=== PATIENT | female | born 1975 | race Caucasian/White ===

== ENCOUNTER 2017-01-24 17:27 | Emergency (ER) | payer SELFPAY ==
[~2017-01-24] VITALS: Ht 157.5 cm; Wt 78.0 kg
[~2017-01-24 17:27] MED LIST: CLIN1CAP6 PO; OXYC1SOL5 PO
[2017-01-24 17:28] VITALS: BP 125/78; PULSE 110; RESP 16; TEMP 99.7; O2SAT 97
[2017-01-24] MEDS ORDERED: CLINDAMYCIN 600 MG/NS PREMIX 50 ML IV ONE (19:30)
[2017-01-24] MEDS ORDERED: IBUPROFEN 800 MG TAB PO ONE (19:30)
[2017-01-24] MEDS ORDERED: LIDOCAINE 1%/EPINEPHrine 1:100,000 SOLN 20 ML VIAL INFIL ONE (19:30)
[2017-01-24] MEDS ORDERED: TETANUS/DIPHTHERIA TOXOID ADULT 0.5 ML VIAL IM ONE (19:30)
[2017-01-24] MEDS ORDERED: SODIUM CHLOR 0.9% 1000 ML INJ 1,000 ML IV ONE (19:30)
[2017-01-24 19:34] VITALS: BP 122/70; PULSE 98; RESP 18; O2SAT 98
--- NOTE | 2017-01-24 19:35 | PD ---
HPI Chief Complaint: Bite or Sting Time Seen by Provider: 19:22 Travel History International Travel<30 days: No Contact w/Intl Traveler<30days: No Traveled to known affect area: No History of Present Illness HPI 41-year-old white female presents to emergency Department with complaints of a painful rash on her right anterior abdomen which she has had now for the past 3 days. It started off as a small which she states as a "bite". She states that she had squeezed it yesterday and got a large amount of pus out. The area has become increasingly painful, red and swollen. She denies any fever or chills. No nausea vomiting. History of MRSA. Symptoms are moderate to severe. No alleviating factors. No exacerbating factors. PFSH Past Medical History Narrative Medical Hepatitis C, MRSA Asthma: No Blood Disorders: No Anxiety: No Depression: No Heart Rhythm Problems: No Cancer: No Cardiovascular Problems: No High Cholesterol: No Chemotherapy: No Chest Pain: No Congestive Heart Failure: No COPD: No Diabetes: No Diminished Hearing: No Endocrine: No Genitourinary: No Hepatitis: Yes (C) Immune Disorder: No Musculoskeletal: Yes Neurologic: No Psychiatric: No Reproductive: No Respiratory: No Radiation Therapy: No Sleep Apnea: No Thyroid Disease: No Tetanus Vaccination: > 5 Years Past Surgical History Narrative Surgical Hysterectomy Gynecologic Surgery: Yes (HYSTERECTOMY) Hysterectomy: Yes Other Surgery: Yes (HYSTERECTOMY) Social History Alcohol Use: No Tobacco Use: Yes (1 PPD) Substance Use: Yes (METH) Allergies-Medications (Allergen,Severity, Reaction): Coded Allergies: No Known Allergies (Verified , 04/08/14) Reported Meds & Prescriptions Reported Meds & Active Scripts Active Diclofenac Sodium DR (Diclofenac Sodium) 75 Mg Tabdr 75 Mg PO BID Cleocin (Clindamycin HCl) 150 Mg Cap 300 Mg PO Q6H Oxycodone/Acetaminophen 5-325 mg/5Ml (Oxycodone W/ Acetaminophen) 1 Tab Tab 1 Tab PO Q6H PRN Clindamycin Hcl (Clindamycin HCl) 300 Mg Cap 300 Mg PO QID 10 Days Review of Systems General / Constitutional: No: Fever Eyes: No: Visual changes HENT: No: Headaches Cardiovascular: No: Chest Pain or Discomfort Respiratory: No: Shortness of Breath Gastrointestinal: No: Abdominal Pain Genitourinary: No: Dysuria Musculoskeletal: Positive: Pain Skin: Positive Rash Neurologic: No: Weakness Psychiatric: No: Depression Endocrine: No: Polydipsia Hematologic/Lymphatic: No: Easy Bruising Physical Exam Narrative GENERAL: This is a well-nourished, well-developed patient, in no apparent distress. SKIN: Patient has a area of erythema to the right upper abdomen measuring approximately 6 x 12 cm. There is a 3 x 6 cm area of central induration with a central pustule. There is no fluctuance or pointing. Warm to touch. Tender. HEAD: Atraumatic. Normocephalic. EYES: PERRL, EOMI, no discharge or injection. No scleral icterus. EARS: Clear NOSE: Nasal turbinates appear normal. THROAT: Mucosa pink and moist. Airway patent. NECK: Trachea midline. supple, moves head freely. LUNGS: Clear to auscultation. CV: Regular in rhythm. ABDOMEN: Soft nontender. EXT: No clubbing cyanosis or edema. Data Data Last Documented VS Vital Signs Date Time Temp Pulse Resp B/P (MAP) Pulse Ox O2 Delivery O2 Flow Rate FiO2 01/24/17 19:34 98 18 122/70 (87) 98 Room Air 01/24/17 17:28 99.7 Orders Orders Complete Blood Count With Diff (01/24/17 19:25) Basic Metabolic Panel (Bmp) (01/24/17 19:25) Iv Access Insert/Monitor (01/24/17 19:25) Lactic Acid (01/24/17 19:25) Sodium Chlor 0.9% 1000 Ml Inj (Ns 1000 M (01/24/17 19:30) Ibuprofen (Motrin) (01/24/17 19:30) Clindamycin 600 Mg Premix (Cleocin 600mg (01/24/17 19:30) Tetanus/Diphtheria Tox Adult (Tetanus/Di (01/24/17 19:30) Lidocai-Epi 1%-1:100,000 Inj (Xylocaine- (01/24/17 19:30) Ed Discharge Order (01/24/17 21:03) Labs Laboratory Tests Test 01/24/17 19:45 White Blood Count 13.0 TH/MM3 Red Blood Count 4.80 MIL/MM3 Hemoglobin 14.2 GM/DL Hematocrit 41.7 % Mean Corpuscular Volume 86.9 FL Mean Corpuscular Hemoglobin 29.6 PG Mean Corpuscular Hemoglobin Concent 34.1 % Red Cell Distribution Width 12.6 % Platelet Count 291 TH/MM3 Mean Platelet Volume 8.0 FL Neutrophils (%) (Auto) 67.4 % Lymphocytes (%) (Auto) 24.2 % Monocytes (%) (Auto) 6.6 % Eosinophils (%) (Auto) 1.3 % Basophils (%) (Auto) 0.5 % Neutrophils # (Auto) 8.7 TH/MM3 Lymphocytes # (Auto) 3.1 TH/MM3 Monocytes # (Auto) 0.9 TH/MM3 Eosinophils # (Auto) 0.2 TH/MM3 Basophils # (Auto) 0.1 TH/MM3 CBC Comment DIFF FINAL Differential Comment Blood Urea Nitrogen 6 MG/DL Creatinine 0.83 MG/DL Random Glucose 111 MG/DL Calcium Level 9.0 MG/DL Sodium Level 135 MEQ/L Potassium Level 4.8 MEQ/L Chloride Level 101 MEQ/L Carbon Dioxide Level 28.4 MEQ/L Anion Gap 6 MEQ/L Estimat Glomerular Filtration Rate 75 ML/MIN Lactic Acid Level 1.8 mmol/L MDM Medical Decision Making Medical Screen Exam Complete: Yes Emergency Medical Condition: Yes Medical Record Reviewed: Yes Interpretation(s) CBC & BMP Diagram 01/24/17 19:45 Calcium Level 9.0 Lactic negative Differential Diagnosis MDM: High Differential diagnoses: Abscess, folliculitis, cellulitis, lymphangitis, abrasion, contact dermatitis Narrative Course IV access is obtained. Patient given clindamycin 600 mg IV, tetanus immunization, CBC, chemistry, lactic acid, normal saline 1 L bolus. Motrin 800 mg by mouth. An incision and drainage will be performed. Procedures Procedure Narrative I&D abscess: After the risks and benefits were discussed the following procedure was performed. The skin is prepped and draped in the usual sterile fashion using Betadine. The abscess is anesthetized with 1% lidocaine with epinephrine. After adequate anesthesia, an 11 blade scalpel is used to make a 3 centimeter central incision. Perulant material is expressed. Loculations are broken up using curved Nataliia forceps. The wound is cleansed deeply using dilute Betadine and peroxide on Q-tips. The wound is packed open using iodoform gauze. A clean dressing is applied. The patient tolerated the procedure well. There was no complications. Follow-up instructions were given to the patient. Diagnosis Primary Impression: right upper abdomen abscess with cellulitis Patient Instructions: General Instructions Additional Instructions: Rest. Elevation. keep clean and dry. remove the packing in two days. Daily wound care with soap, water and Neosporin. Clindamycin and diclofenac. Follow-up with a primary care doctor in 3-5 days. Return to the ER for any problems. Med/Other Pt SpecificInfo: Prescription(s) given, Wound Care Scripts Diclofenac Sodium DR (Diclofenac Sodium DR) 75 Mg Tabdr 75 MG PO BID, #20 TAB 0 Refills Prov: Grecia Castellon DO 01/24/17 Clindamycin (Cleocin) 150 Mg Cap 300 MG PO Q6H for Infection, #80 CAP 0 Refills Prov: Grecia Castellon DO 01/24/17 Disposition: 01 DISCHARGE HOME Condition: Stable Fam Gregorio Jan 24, 2017 19:35
[2017-01-24 20:22] LABS: AUTOMATED NEUTROPHIL # 8.7 TH/MM3 (1.8-7.7); BASOPHIL # 0.1 TH/MM3 (0-0.2); BASOPHIL % 0.5 % (0.0-2.0); EOSINOPHIL # 0.2 TH/MM3 (0-0.4); EOSINOPHIL % 1.3 % (0.0-4.0); HEMATOCRIT 41.7 % (35.0-46.0); HEMO FLAGS DIFF FINAL; LYMPH % 24.2 % (9.0-44.0); LYMPHOCYTE # 3.1 TH/MM3 (1.0-4.8); MEAN CELL VOLUME 86.9 FL (80.0-100.0); MEAN CORPUSCULAR HEMOGLOBIN 29.6 PG (27.0-34.0); MEAN CORPUSCULAR HGB CONC 34.1 % (32.0-36.0); MONO % 6.6 % (0.0-8.0); NEUT % 67.4 % (16.0-70.0); PLATELET COUNT 291 TH/MM3 (150-450); RED CELL DISTRIBUTION WIDTH 12.6 % (11.6-17.2)
[2017-01-24 20:46] LABS: BICARBONATE 28.4 MEQ/L (21.0-32.0)
[2017-01-24 20:48] LABS: POTASSIUM 4.8 MEQ/L (3.5-5.1)
[2017-01-24] MEDS ORDERED: DICL75TA PO (21:06)
[2017-01-24] MEDS ORDERED: CLIN150 PO (21:06)
[2017-01-24 21:12] VITALS: BP 121/73
== END 2017-01-24 21:22 | disposition home or self-care (01) ==
LOC: NEPD 17:27
DX: L02.211 Cutaneous abscess of abdominal wall (principal); L03.311 Cellulitis of abdominal wall
CPT/HCPCS: 10061; 80048; 83605; 85025; 96374; 99284; J7030

== ENCOUNTER 2017-01-29 09:59 | Emergency (ER) | payer SELFPAY ==
[~2017-01-29 09:59] MED LIST changes: +CLIN150 PO; +DICL75TA PO
[2017-01-29 10:03] VITALS: BP 132/69; PULSE 120; RESP 15; TEMP 99.7; O2SAT 97
[2017-01-29] MEDS ORDERED: KETOROLAC TROMETHAMINE 30 MG/ML (IVP) VIAL IV PUSH ONE (10:45)
[2017-01-29] MEDS ORDERED: ONDANSETRON HCL 4 MG/2 ML VIAL IV PUSH ONE (10:45)
[2017-01-29] MEDS ORDERED: ACETAMINOPHEN 325 MG TAB PO ONE (10:45)
[2017-01-29] MEDS ORDERED: SODIUM CHLOR 0.9% 1000 ML INJ 1,000 ML IV ONE ×2 (10:45)
[2017-01-29] MEDS ORDERED: MORPHINE SULFATE 4 MG/ML INJ IV PUSH ONE (10:45)
[2017-01-29] MEDS ORDERED: SODIUM CHLOR 0.9% 1000 ML INJ 700 ML IV ONE (10:45)
[2017-01-29] MEDS ORDERED: LIDOCAINE HCL 1% 20 ML VIAL INFIL ONE (11:00)
[2017-01-29 11:09] LABS: AUTOMATED NEUTROPHIL # 13.3 TH/MM3 (1.8-7.7); BASOPHIL # 0.1 TH/MM3 (0-0.2); BASOPHIL % 0.4 % (0.0-2.0); EOSINOPHIL # 0.1 TH/MM3 (0-0.4); EOSINOPHIL % 0.7 % (0.0-4.0); HEMATOCRIT 39.4 % (35.0-46.0); HEMO FLAGS DIFF FINAL; LYMPH % 19.4 % (9.0-44.0); LYMPHOCYTE # 3.5 TH/MM3 (1.0-4.8); MEAN CORPUSCULAR HEMOGLOBIN 30.3 PG (27.0-34.0); MEAN CORPUSCULAR HGB CONC 34.8 % (32.0-36.0); MONO % 5.2 % (0.0-8.0); NEUT % 74.3 % (16.0-70.0); PLATELET COUNT 327 TH/MM3 (150-450); RED BLOOD COUNT 4.52 MIL/MM3 (4.00-5.30); RED CELL DISTRIBUTION WIDTH 12.7 % (11.6-17.2); WHITE BLOOD COUNT 17.9 TH/MM3 (4.0-11.0)
[2017-01-29] MEDS ORDERED: LIDOCAINE HCL 1% 50 ML VIAL INFIL ONE (11:15)
--- NOTE | 2017-01-29 11:16 | PD ---
HPI Chief Complaint: Bite or Sting Time Seen by Provider: 10:21 Travel History International Travel<30 days: No Contact w/Intl Traveler<30days: No Traveled to known affect area: No History of Present Illness HPI The patient is a 41-year-old female who presents to the emergency department for an abscess to the right flank. The patient states she underwent incision and drainage in the emergency department several days ago was placed on clindamycin. However, the patient now complains of an enlarging abscess to the right flank with subjective fevers, sweats, and elevated heart rate. The patient does have a history of intravenous drug use, last used IV methamphetamines 2 weeks ago. She denies any history of endocarditis or epidural abscess is. The patient's symptoms are moderate without any current alleviating or exacerbating factors. She has been taking the clindamycin as directed. Symptoms are moderate, exacerbated by history of previous skin infections and IV drug abuse, and there are no current alleviating factors. PFSH Past Medical History Asthma: No Blood Disorders: No Anxiety: No Depression: No Heart Rhythm Problems: No Cancer: No Cardiovascular Problems: No High Cholesterol: No Chemotherapy: No Chest Pain: No Congestive Heart Failure: No COPD: No Diabetes: No Diminished Hearing: No Endocrine: No Genitourinary: No Hepatitis: Yes (C) Immune Disorder: No Musculoskeletal: Yes Neurologic: No Psychiatric: No Reproductive: No Respiratory: No Radiation Therapy: No Sleep Apnea: No Thyroid Disease: No ?: Not Past Surgical History Gynecologic Surgery: Yes (HYSTERECTOMY) Hysterectomy: Yes (partial) Other Surgery: Yes (HYSTERECTOMY) Social History Alcohol Use: No Tobacco Use: Yes (1 PPD) Substance Use: Yes (HX METH, STATES NO USE IN 2 WEEK (01/29/17)) Allergies-Medications (Allergen,Severity, Reaction): Coded Allergies: No Known Allergies (Verified , 04/08/14) Reported Meds & Prescriptions Reported Meds & Active Scripts Active Diclofenac Sodium DR (Diclofenac Sodium) 75 Mg Tabdr 75 Mg PO BID Cleocin (Clindamycin HCl) 150 Mg Cap 300 Mg PO Q6H Review of Systems Except as stated in HPI: all other systems reviewed are Neg General / Constitutional: Positive: Fever HENT: No: Lightheadedness Cardiovascular: No: Chest Pain or Discomfort Respiratory: No: Shortness of Breath Gastrointestinal: No: Nausea, Vomiting, Abdominal Pain Musculoskeletal: Positive: Myalgias, Weakness Neurologic: Positive: Weakness, Dizziness Psychiatric: Positive: Substance Abuse Physical Exam Narrative GENERAL: Awake, alert, pleasant 41 year-old female who appears her stated age and is in no acute respiratory distress. SKIN: Focused skin assessment warm/dry. Tract weaver noted in the antecubital fossa bilaterally. HEAD: Atraumatic. Normocephalic. EYES: Pupils equal and round. No scleral icterus. No injection or drainage. ENT: No nasal bleeding or discharge. Mucous membranes pink and moist. NECK: Trachea midline. No JVD. CARDIOVASCULAR: Regular, tachycardic with a heart rate of 115. RESPIRATORY: No accessory muscle use. Clear to auscultation. Breath sounds equal bilaterally. GASTROINTESTINAL: Abdomen soft, non-tender, nondistended. Draining abscess noted in the right anterior abdomen. The right flank reveals a large abscess extending into the back with surrounding erythema. MUSCULOSKELETAL: No obvious deformities. No clubbing. No cyanosis. No edema. NEUROLOGICAL: Awake and alert. No obvious cranial nerve deficits. Motor grossly within normal limits. Normal speech. PSYCHIATRIC: Appropriate mood and affect; insight and judgment normal. Data Data Last Documented VS Vital Signs Date Time Temp Pulse Resp B/P (MAP) Pulse Ox O2 Delivery O2 Flow Rate FiO2 01/29/17 10:03 99.7 120 15 132/69 (90) 97 Orders Orders Sepsis Workup Initiated (01/29/17 ) Electrocardiogram (01/29/17 10:45) Complete Blood Count With Diff (01/29/17 10:45) Comprehensive Metabolic Panel (01/29/17 10:45) Lactic Acid Sepsis Protocol (01/29/17 10:45) Urinalysis - C+S If Indicated (01/29/17 10:45) Blood Culture (01/29/17 10:45) Wound Culture And Gram Stain (01/29/17 10:45) Chest, Single Ap (01/29/17 10:45) Blood Glucose (01/29/17 10:45) Ecg Monitoring (01/29/17 10:45) Iv Access Insert/Monitor (01/29/17 10:45) Oximetry (01/29/17 10:45) Oxygen Administration (01/29/17 10:45) Acetaminophen (Tylenol) (01/29/17 10:45) Ondansetron Inj (Zofran Inj) (01/29/17 10:45) Sodium Chlor 0.9% 1000 Ml Inj (Ns 1000 M (01/29/17 10:45) Sodium Chlor 0.9% 1000 Ml Inj (Ns 1000 M (01/29/17 10:45) Sodium Chlor 0.9% 1000 Ml Inj (Ns 1000 M (01/29/17 10:45) Morphine Inj (Morphine Inj) (01/29/17 10:45) Ketorolac Inj (Toradol Inj) (01/29/17 10:45) Lidocaine 1% Inj (Xylocaine 1% Inj) (01/29/17 11:00) Lidocaine 1% Inj (50 Ml) (Xylocaine 1% I (01/29/17 11:15) Wound Culture And Gram Stain (01/29/17 12:50) Clindamycin 600 Mg/Ns Premix (Cleocin 60 (01/29/17 13:30) Sulfamet-Trimeth Ds 800-160 Mg (Bactrim (01/29/17 13:30) Labs Laboratory Tests Test 01/29/17 10:50 01/29/17 10:52 White Blood Count 17.9 TH/MM3 Red Blood Count 4.52 MIL/MM3 Hemoglobin 13.7 GM/DL Hematocrit 39.4 % Mean Corpuscular Volume 87.0 FL Mean Corpuscular Hemoglobin 30.3 PG Mean Corpuscular Hemoglobin Concent 34.8 % Red Cell Distribution Width 12.7 % Platelet Count 327 TH/MM3 Mean Platelet Volume 8.1 FL Neutrophils (%) (Auto) 74.3 % Lymphocytes (%) (Auto) 19.4 % Monocytes (%) (Auto) 5.2 % Eosinophils (%) (Auto) 0.7 % Basophils (%) (Auto) 0.4 % Neutrophils # (Auto) 13.3 TH/MM3 Lymphocytes # (Auto) 3.5 TH/MM3 Monocytes # (Auto) 0.9 TH/MM3 Eosinophils # (Auto) 0.1 TH/MM3 Basophils # (Auto) 0.1 TH/MM3 CBC Comment DIFF FINAL Differential Comment Blood Urea Nitrogen 7 MG/DL Creatinine 0.72 MG/DL Random Glucose 137 MG/DL Total Protein 7.9 GM/DL Albumin 3.1 GM/DL Calcium Level 8.8 MG/DL Alkaline Phosphatase 88 U/L Aspartate Amino Transf (AST/SGOT) 15 U/L Alanine Aminotransferase (ALT/SGPT) 18 U/L Total Bilirubin 0.5 MG/DL Sodium Level 132 MEQ/L Potassium Level 3.7 MEQ/L Chloride Level 99 MEQ/L Carbon Dioxide Level 25.1 MEQ/L Anion Gap 8 MEQ/L Estimat Glomerular Filtration Rate 88 ML/MIN Lactic Acid Level 1.1 mmol/L [facility] Medical Decision Making Medical Screen Exam Complete: Yes Emergency Medical Condition: Yes Medical Record Reviewed: Yes Interpretation(s) EKG reveals sinus tachycardia with a heart rate of 101. Laboratory Tests Test 01/29/17 10:50 01/29/17 10:52 White Blood Count 17.9 TH/MM3 Red Blood Count 4.52 MIL/MM3 Hemoglobin 13.7 GM/DL Hematocrit 39.4 % Mean Corpuscular Volume 87.0 FL Mean Corpuscular Hemoglobin 30.3 PG Mean Corpuscular Hemoglobin Concent 34.8 % Red Cell Distribution Width 12.7 % Platelet Count 327 TH/MM3 Mean Platelet Volume 8.1 FL Neutrophils (%) (Auto) 74.3 % Lymphocytes (%) (Auto) 19.4 % Monocytes (%) (Auto) 5.2 % Eosinophils (%) (Auto) 0.7 % Basophils (%) (Auto) 0.4 % Neutrophils # (Auto) 13.3 TH/MM3 Lymphocytes # (Auto) 3.5 TH/MM3 Monocytes # (Auto) 0.9 TH/MM3 Eosinophils # (Auto) 0.1 TH/MM3 Basophils # (Auto) 0.1 TH/MM3 CBC Comment DIFF FINAL Differential Comment Blood Urea Nitrogen 7 MG/DL Creatinine 0.72 MG/DL Random Glucose 137 MG/DL Total Protein 7.9 GM/DL Albumin 3.1 GM/DL Calcium Level 8.8 MG/DL Alkaline Phosphatase 88 U/L Aspartate Amino Transf (AST/SGOT) 15 U/L Alanine Aminotransferase (ALT/SGPT) 18 U/L Total Bilirubin 0.5 MG/DL Sodium Level 132 MEQ/L Potassium Level 3.7 MEQ/L Chloride Level 99 MEQ/L Carbon Dioxide Level 25.1 MEQ/L Anion Gap 8 MEQ/L Estimat Glomerular Filtration Rate 88 ML/MIN Lactic Acid Level 1.1 mmol/L Differential Diagnosis Differential diagnosis includes abscess, infected wound, sepsis, bacteremia, septicemia, failed outpatient therapy. Narrative Course IV was established, labs are drawn and sent, and the patient was placed on cardiac telemetry monitoring and continuous pulse oximetry monitoring. The patient's abscess in the right flank was incised and drained. Lactic acid and blood cultures were sent to lab. The patient was administered 3 L of IV fluids , Toradol, morphine, and Zofran. The patient's white count was elevated 17.1, lactic acid is normal. The patient was administered clindamycin 600 mg intravenously and will be placed on Bactrim. The patient will be advised come back in 48 hours for reevaluation of the abscess and reassessment of the patient 's blood cultures. The patient is comfortable with this plan of care. Procedures Procedure Narrative After the risks and benefits were discussed the following procedure was performed: INCISION AND DRAINAGE OF ABSCESS: The area was prepped and was sterilely draped. A subcutaneous wheal of 1 % Lidocaine with a total number 10 mL was used to anesthetize the area. The area was properly anesthetized. A number 10 scalpel was used to make a 3cm incision across the area of the abscess. Cultures were obtained. The abscess was drained an irrigated with normal saline. Quarter inch iodoform packing was placed in the wound. Sterile dressing applied. Patient advised to have packing removed in two days. Diagnosis Primary Impression: Abscess of lower back Patient Instructions: General Instructions Additional Instructions: Return in 48 hours for reevaluation of the abscess. Bactrim as directed. Continue clindamycin. Warm soaks to the affected area. Med/Other Pt SpecificInfo: Prescription(s) given Scripts Sulfamethoxazole-Trimethoprim (Bactrim DS) 800-160 Mg Tab 1 TAB PO BID for Infection, #20 TAB 0 Refills Prov: Amol Maldonado MD 01/29/17 Disposition: 01 DISCHARGE HOME Condition: Stable Amol Maldonado MD Jan 29, 2017 11:16
--- NOTE | 2017-01-29 11:21 | RADRPT ---
EXAM DATE/TIME: 01/29/2017 10:57 [facility] COMPARISON: CHEST SINGLE AP, August 03, 2014, 3:39. INDICATIONS : Fever. MEDICAL HISTORY : None. SURGICAL HISTORY : None. ENCOUNTER: Initial ACUITY: 1 day PAIN SCORE: 0/10 LOCATION: Bilateral chest FINDINGS: Patchy focal airspace disease in the right lung base. Cardiomediastinal contours are within normal li mits. Bony thorax is intact. CONCLUSION: 1. Focal patchy airspace disease in the right lung base may reflect developing pneumonia given histor y. Grzegorz Travis MD on January 29, 2017 at 11:19 Board Certified Radiologist. This report was verified electronically.
[2017-01-29 11:24] LABS: ANION GAP 8 MEQ/L (5-15); AST (GOT) 15 U/L (15-37); BICARBONATE 25.1 MEQ/L (21.0-32.0); BLOOD UREA NITROGEN 7 MG/DL (7-18); CHLORIDE 99 MEQ/L (98-107); GLOMERULAR FILTRATION RATE 88 ML/MIN (>89); POTASSIUM 3.7 MEQ/L (3.5-5.1); SODIUM (NA) 132 MEQ/L (136-145)
[2017-01-29 11:25] LABS: ALT (GPT) 18 U/L (10-53)
[2017-01-29 11:27] LABS: ALKALINE PHOSPHATASE 88 U/L (45-117); TOTAL BILIRUBIN ADULT 0.5 MG/DL (0.2-1.0)
[2017-01-29] MEDS ORDERED: BACT800T5 PO (13:29)
[2017-01-29] MEDS ORDERED: CLINDAMYCIN 600 MG/NS PREMIX 50 ML IV ONE (13:30)
[2017-01-29] MEDS ORDERED: SULFAMETHOXAZOLE-TRIMETHOPRIM DS 800-160 MG TAB PO ONE (13:30)
[2017-01-29 13:50] LABS: BACTERIA, URINE RARE /hpf; BLOOD, URINE NEG (NEG); GLUCOSE,URINE NEG (NEG); KETONE, URINE NEG (NEG); NITRITE,URINE NEG (NEG); PH, URINE 6.5 (5.0-8.5); SQUAMOUS EPITHELIAL CELL URINE 19 /hpf (0-5); URINE COLOR LIGHT-YELLOW (YELLW/STRAW)
[2017-01-29 13:53] LABS: COMMENT (UR) CATH-CULT NOT IND; CULTURE IF INDICATED CATH CULTURE NOT IND
[2017-01-29 15:00] VITALS: BP 92/46; PULSE 90; RESP 17; O2SAT 98
[2017-01-29 15:05] VITALS: RESP 16
--- NOTE | 2017-01-30 16:01 | EKG ---
Date Performed: 01/29/2017 Time Performed: 12:23:02 PTAGE: 41 years EKG: SINUS TACHYCARDIA ABNORMAL RHYTHM ECG PREVIOUS TRACING : 08/03/2014 18.45 DOCTOR: Sandor Hsu Interpretating Date/Time 01/30/2017 15:59:33
== END 2017-01-29 15:07 | disposition home or self-care (01) ==
LOC: NEPE 09:59
DX: L02.211 Cutaneous abscess of abdominal wall (principal); A49.02 Methicillin resistant Staphylococcus aureus infection, unspecified site; R00.0 Tachycardia, unspecified; R94.31 Abnormal electrocardiogram [ECG] [EKG]
CPT/HCPCS: 10060; 71010; 80053; 81001; 83605; 85025; 86403; 87040; 87070; 87186; 93005; 96361; 96374; 96375; 99285; J1885; J2270; J2405; J7030; 87205